=== PATIENT | female | born 1950 | race Caucasian/White ===

== ENCOUNTER 2017-08-19 08:32 | Inpatient (IN) | payer OTHER ==
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
[2017-08-19] MEDS ORDERED: NS 500 ML IV ONE ×2 (09:10→10:45)
[2017-08-19 09:18] LABS: PLATELET COUNT 378 10^3/uL (150-400)
[2017-08-19 09:24] LABS: CREATINE KINASE 365 IU/L (0-156)
[2017-08-19 09:25] LABS: INR 1.55 (0.83-1.16); PROTIME(PATIENT) 18.7 SEC (12.0-15.0)
[2017-08-19] MEDS ORDERED: INSULIN REGULAR HUMAN 100 UNIT/ML UNIT IVP ONE (10:00)
[2017-08-19] MEDS ORDERED: SODIUM POLY SULF 15 GM/60 ML BOTTLE PR ONE (10:00)
[2017-08-19] MEDS ORDERED: D50W 25 GM/50 ML SYR IVP ONE (10:00)
[2017-08-19] MEDS ORDERED: ALBUTEROL 3 ML DEYVIAL IH ONE (10:00)
[2017-08-19] MEDS ORDERED: CALCIUM GLUC 10% 1 GM/10 ML VIAL IVP ONE (10:00)
[2017-08-19] MEDS ORDERED: LORazepam 2 MG/ML INJ IVP ONE (10:08)
[2017-08-19] MEDS ORDERED: LORazepam 2 MG/ML INJ ONE (10:09)
[2017-08-19] MEDS ORDERED: SODIUM BICARBONATE 150 MEQ in D5W 1,000 ML IV ONE (10:10)
[2017-08-19] MEDS ORDERED: SODIUM BICARBONATE 50 MEQ/50 ML SYR ONE ×2 (10:14→10:26)
--- NOTE | 2017-08-19 10:32 | CPEKG ---
Heart Rate: 103 RR Interval: 583 P-R Interval: 132 QRSD Interval: 114 QT Interval: 352 QTC Interval: 461 P [place]: 72 QRS [place]: 48 T Wave [place]: 90 EKG Severity - ABNORMAL ECG - EKG Impression: SINUS TACHYCARDIA EKG Impression: DOMINGUEZ, CONSIDER BIATRIAL ABNORMALITIES EKG Impression: NONSPECIFIC INTRAVENTRICULAR CONDUCTION DELAY EKG Impression: Peaked T waves Electronically Signed By: Mara Ramsay 19-Aug-2017 15:19:11
[2017-08-19] MEDS ORDERED: ETOMIDATE 40 MG/20 ML INJ IVP ONE (10:54)
[2017-08-19] MEDS ORDERED: ROCURONIUM 100 MG/10 ML VIAL IVP ONE (10:55)
[2017-08-19] MEDS ORDERED: PROPOFOL/EMULSION 50 ML IV ONE ×2 (10:56→11:16)
[2017-08-19] MEDS ORDERED: NOREPINEPHRINE/NS 500 ML IV ONE (11:03)
[2017-08-19] MEDS ORDERED: SODIUM BICARBONATE 150 MEQ in D5W 1,000 ML IV SCH (11:15)
[2017-08-19] MEDS ORDERED: PROPOFOL 200 MG/20 ML VIAL IV ONE (11:28)
--- NOTE | 2017-08-19 12:03 | PDCONSULT ---
Cell Stripper Note: Assessment/Plan: CHUCHO on CKD 3: unclear what timeframe she has had decline in renal function, although CT scan shows bilaterally atrophied kidneys which is concerning for very advanced CKD. She may now be ESRD but that is yet to be determined. She is currently acidemic and hyperkalemic. - Will plan on HD today. - Will plan on HD vs CRRT again tomorrow depending on her condition. - Will check UA, urine lytes, urine cr, urine PCR, C3, C4. CK reviewed at 350. - Avoid hypotension and nephrotoxins. Hyperkalemia: Pt has received 2 amps bicarb, insulin/D50, albuterol, calcium in ER. Pt had peaked T waves on initial EKG. - Will plan to modulate with HD today. - Will continue to monitor and treat medically as needed until HD initiated. Acidemia: pt is acidemic with pH of 6.99, has an anion gap acidosis with insufficient respiratory compensation. - Pt being intubated and placed on vent. - Will also help modulate with HD. - Pt getting IVFs. Hyperphosphatemia: in setting of severe CHUCHO and likely advanced CKD. - Will help modulate with HD. - Will continue to monitor for now. - Will initiate phos binder if needed when pt is taking PO. - Will check PTH. Thank you for the interesting consult. Nephrology will continue to follow, please call if you have any additional questions or concerns. H & P Stated Complaint: found down at home Time Seen by Provider: 08/19/17 08:56 HPI/ROS: HPI: Ms. Parry is a 67 yo F with h/o DM and HTN and likely CKD but does not regularly see a physician. Pt unable to provide history, obtained from EMR and from son at bedside. 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 She has not been herself since Saturday, has been very tired and having falls at home, also has been breathing heavier over the weekend. He states that yesterday evening she looked tired in bed but had no significant complaints except that her abdomen was bothering her, which is a common complaint for her. He states that she had surgery a long time ago and since then it has healed poorly, she has struggled with infections and was last on an antibiotic about 2 weeks ago. This morning, he found her down after she had fallen, thinks she had been down all night. She was awake and talking on presentation to ER but became increasingly confused and somnolent, now on NRB and continues to struggle. Her son notes that she does not see a doctor regularly and is on no treatment for her DM or HTN as she has refused it. He thinks she does have kidney disease but not sure how bad it is. ROS: unable to obtain 2/2 clinical condition Source: Family Exam Limitations: Clinical condition - Personal History Current Tetanus/Diphtheria Vaccine: Unsure Current Tetanus Diphtheria and Acellular Pertussis (TDAP): Unsure - Medical/Surgical History Hx Asthma: No Hx Chronic Respiratory Disease: No Hx Diabetes: Yes Hx Cardiac Disease: No Hx Renal Disease: Yes Hx Cirrhosis: No Hx Alcoholism: No Hx HIV/AIDS: No Hx Splenectomy or Spleen Trauma: No Other PMH: DM ( noncompliant with insulin), HTN (not on medication), kidney problems, cholecystectomy, appendectomy, unknown abdominal surgery - Family History Significant Family History: Diabetes, Hypertension, Renal disease (family members have been on dialysis) - Social History Smoking Status: Never smoked - Physical Exam Exam: General: disoriented, mild distress Eyes; EOMI, PERRL OP: Clear, MMM Neck: supple, no thyromegaly CV: tachycardia, no edema Resp: CTA bilat, labored respirations on NRB Abd: Soft, distended, large area of erythema and ecchymosis concerning for underlying fluid collection Skin: C/D/I, no rash Neuro: CN II-XII Grossly intact, +asterixis Psych: confused, disoriented, somnolent, unable to answer questions Constitutional: Initial Vital Signs Heart Rate 93 08/19/17 08:32 Respiratory Rate 26 H 08/19/17 08:32 Blood Pressure 130/73 H 08/19/17 08:32 O2 Sat (%) 96 08/19/17 08:32 O2 Delivery Mode Non-Rebreather Mask O2 (L/minute) 15 Allergies/Adverse Reactions: No Known Allergies Allergy (Unverified 09/23/12 16:42) Home Medications: Medication Instructions Recorded Herbals/Supplements -Info Only 1 ea PO DAILY 08/19/17 Lab and Imaging 08/19/17 08:30 08/19/17 09:12 WBC 46.01 10^3/uL (3.80-9.50) H 08/19/17 08:30 RBC 2.63 10^6/uL (4.18-5.33) L 08/19/17 08:30 Hgb 7.5 g/dL (12.6-16.3) L 08/19/17 08:30 POC Hgb 6.5 gm/dL (12.6-16.3) L 08/19/17 10:19 Hct 23.4 % (38.0-47.0) L 08/19/17 08:30 POC Hct 19 % (38-47) L 08/19/17 10:19 MCV 89.0 fL (81.5-99.8) 08/19/17 08:30 MCH 28.5 pg (27.9-34.1) 08/19/17 08:30 MCHC 32.1 g/dL (32.4-36.7) L 08/19/17 08:30 RDW 16.5 % (11.5-15.2) H 08/19/17 08:30 Plt Count 378 10^3/uL (150-400) 08/19/17 08:30 MPV 11.1 fL (8.7-11.7) 08/19/17 08:30 Neut % (Auto) Not Reported 08/19/17 08:30 Lymph % (Auto) Not Reported 08/19/17 08:30 [place] % (Auto) Not Reported 08/19/17 08:30 Eos % (Auto) Not Reported 08/19/17 08:30 Baso % (Auto) Not Reported 08/19/17 08:30 Nucleat RBC Rel Count 0.7 % (0.0-0.2) H 08/19/17 08:30 Absolute Neuts (auto) Not Reported 08/19/17 08:30 Absolute Lymphs (auto) Not Reported 08/19/17 08:30 Absolute Monos (auto) Not Reported 08/19/17 08:30 Absolute Eos (auto) Not Reported 08/19/17 08:30 Absolute Basos (auto) Not Reported 08/19/17 08:30 Absolute Nucleated RBC 0.30 10^3/uL (0-0.01) H 08/19/17 08:30 Immature Gran % Not Reported 08/19/17 08:30 Seg Neutrophils % 86 % 08/19/17 08:30 Band Neutrophils % 14 % 08/19/17 08:30 Immature Gran # Not Reported 08/19/17 08:30 Absolute Seg Neuts 39.57 10^/uL (1.70-6.50) H 08/19/17 08:30 Absolute Band Neuts 6.44 10^3/uL (0.00-0.70) H 08/19/17 08:30 Toxic Granulation PRESENT H 08/19/17 08:30 Platelet Estimate ADEQUATE (ADEQ) 08/19/17 08:30 Echinocytes 1+ H 08/19/17 08:30 Schistocytes 1+ H 08/19/17 08:30 PT 18.7 SEC (12.0-15.0) H 08/19/17 08:30 INR 1.55 (0.83-1.16) H 08/19/17 08:30 APTT 32.6 SEC (23.0-38.0) 08/19/17 08:30 Puncture Site RIGHT RADIAL 08/19/17 11:24 Patient Temperature 37.0 DEGREES 08/19/17 11:24 pCO2 32 mmHg (34-38) L 08/19/17 11:24 pO2 182 mmHg (65-75) H 08/19/17 11:24 Total CO2 8 mEq/L (23-27) L* 08/19/17 11:24 ABG pH 6.99 (7.35-7.45) L* 08/19/17 11:24 ABG PO2/FiO2 Ratio 275 RATIO 08/19/17 11:24 ABG HCO3 7 mEq/L (22-26) L 08/19/17 11:24 ABG O2 Saturation 98 % (92-95) H 08/19/17 11:24 ABG Base Excess -22.3 mEq/L (-2.5-2.5) L 08/19/17 11:24 VBG Lactic Acid 1.3 mmol/L (0.7-2.1) 08/19/17 09:12 O2 Concentration % 60 % (0-100) 08/19/17 11:24 Set Respiration Rate 18 08/19/17 11:24 Tidal Volume 400 08/19/17 11:24 End Tidal CO2 22 08/19/17 11:24 PEEP 5 08/19/17 11:24 Pressure Support 10 08/19/17 11:24 POC Sodium 147 mEq/L (135-145) H 08/19/17 10:19 Sodium 150 mEq/L (135-145) H 08/19/17 09:12 POC Potassium 6.7 mEq/L (3.3-5.0) H* 08/19/17 10:19 Potassium 7.3 mEq/L (3.5-5.2) H* 08/19/17 09:12 POC Chloride 120 mEq/L (97-110) H 08/19/17 10:19 Chloride 117 mEq/L (97-110) H 08/19/17 09:12 Carbon Dioxide < 5 mEq/l (22-31) L* 08/19/17 09:12 Anion Gap TNP 08/19/17 09:12 POC BUN > 140 mg/dL (7-23) H* 08/19/17 10:19 BUN 190 mg/dL (7-23) H* 08/19/17 09:12 Creatinine 16.5 mg/dL (0.6-1.0) H* 08/19/17 09:12 POC Creatinine 17.4 mg/dL (0.6-1.0) H* 08/19/17 10:19 Estimated GFR 2 08/19/17 09:12 Glucose 149 mg/dL (70-100) H 08/19/17 09:12 POC Glucose 293 mg/dL (70-100) H 08/19/17 10:19 Calcium 7.5 mg/dL (8.5-10.4) L 08/19/17 09:12 Phosphorus 14.0 mg/dL (2.5-4.5) H 08/19/17 09:12 Magnesium 2.4 mg/dL (1.6-2.3) H 08/19/17 09:12 Total Bilirubin 0.6 mg/dL (0.1-1.4) 08/19/17 08:30 Creatine Kinase 365 IU/L (0-156) H 08/19/17 08:30 CK-MB (CK-2) Fraction 31.80 ng/mL (0.00-3.19) H 08/19/17 08:30 CK-MB (CK-2) % 8.7 % (0.0-4.0) H 08/19/17 08:30 Creatine Kinase Interp POSITIVE (NEGATIVE) H 08/19/17 08:30 Troponin I 0.161 ng/mL (0.000-0.034) H 08/19/17 09:24 Albumin 2.7 g/dL (3.5-5.0) L 08/19/17 09:12 EKG Interpretation: Positive for: other (peaked t waves)
[2017-08-19] MEDS ORDERED: NS 1,000 ML IV ONE ×2 (12:10→12:13)
[2017-08-19] MEDS ORDERED: PROMETHAZINE HCL 25 MG/ML INJ IVP PRN (12:21)
[2017-08-19] MEDS ORDERED: ONDANSETRON 4 MG/2 ML VIAL IVP PRN (12:21)
[2017-08-19] MEDS ORDERED: ACETAMINOPHEN 650 MG SUPP PR PRN (12:21)
[2017-08-19] MEDS ORDERED: D50W 25 GM/50 ML SYR IVP PRN (12:27)
[2017-08-19] MEDS ORDERED: HEPARIN 10,000 UNIT/10 ML MDV (1,000 UNIT/ML) ONE (12:37)
[2017-08-19] MEDS ORDERED: HEPARIN 10,000 UNIT/10 ML MDV (1,000 UNIT/ML) IVP ONE (12:40)
[2017-08-19] MEDS ORDERED: ETOMIDATE 40 MG/20 ML INJ ONE (12:50)
[2017-08-19] MEDS ORDERED: PIPERACILLIN/TAZO 3.375 GM/DEX 50 ML IV SCH (14:00)
--- NOTE | 2017-08-19 14:02 | GCON ---
[f rep st] CONSULTATION ALL ROUND [facility] CONSULTATION REASON FOR ADMISSION: Acute on chronic renal failure, severe metabolic acidosis. HISTORY OF PRESENT ILLNESS: The patient is a 67-year-old female with a past medical history, includi ng morbid obesity, chronic renal insufficiency, diabetes, hypertension, and a learning disability. S he was found down at home with altered mental status, was subsequently brought to the emergency room. She was subsequently intubated, placed on mechanical ventilation. All history is gleaned from the medical record. She apparently lives with her son, who last spoke with her on midnight the night berosa johnson. He found her on the floor at approximately 6:30 in the morning. 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 PAST SURGICAL HISTORY: Cholecystectomy. FAMILY HISTORY: Noncontributory. SOCIAL HISTORY: No history of tobacco use. No history of alcohol use. She lives in the area with h er son. There is no illicit drug use. She currently works at [employer]. REVIEW OF SYSTEMS: Attempted to obtain review of systems but was unable to secondary to sedation and mechanical ventilation. PHYSICAL EXAM: VITAL SIGNS: Blood pressure 112/63, pulse 103, respiration rate 18, temperature 34.9 , oxygen saturation 99% on mechanical ventilation. GENERAL: She is a morbidly obese 67-year-old whi te female who was obtunded and on mechanical ventilation. HEENT: Eyes are PERRL, EOMI. Throat: En dotracheal tube is in good position. NECK: Supple. No cervical adenopathy. HEART: Regular rate a nd rhythm, with a 3/6 holosystolic murmur at the left sternal border, without radiation. LUNGS: Dim inished breath sounds and a few bibasilar rhonchi, but no wheeze. ABDOMEN: Soft and nontender. [place] el sounds are present. There is a large, protuberant pannus, lower abdomen, with a midline scar. No evidence of necrosis. EXTREMITIES: 2 to 3+ lower extremity edema. LABORATORY DATA: White count is 46.01. Hemoglobin 7.5, hematocrit 23. Platelet count is 378. INR is 1.55. Sodium was 157, potassium 5.3, chloride 120. CO2 is 7. BUN 183, creatinine 16.0, glucose 186. Magnesium is 2.4. Arterial blood gas, pH is 6.99, pCO2 of 32, pO2 of 182, bicarb of 8, oxygen saturation 98%. This is on an IMV of 18, tidal volume 400, +10 of pressure support, +5 of PEEP, and 60%. Chest x-ray: Central line in good position, endotracheal tube in good position. Mild diffuse pulmonary edema. IMPRESSION: 1. Acute on chronic renal failure. 2. Hyperkalemia. 3. Severe metabolic acidosis. 4. Hyperphosphatemia. 5. Recurrent recur. 6. Infected pannus. 7. Acute respiratory failure secondary to renal failure and metabolic acidosis. RECOMMENDATIONS: 1. Will continue mechanical ventilation for now. Will increase rate to help with acidosis. 2. Agree with urgent dialysis. 3. Broad-spectrum antibiotics. 4. Surgery to see patient. 5. Aggressive blood sugar control with insulin drip. 6. Deep vein thrombosis and pulmonary embolism prophylaxis. 7. Stress ulcer prophylaxis. 8. Will assess for extubation in the morning. 9. /[id number]/MODL
--- NOTE | 2017-08-19 14:20 | PDGENHP ---
History and Physical - Chief Complaint Acute encephalopathy - History of Present Illness Primary care provider: None HPI: 67-year-old female presents with acute encephalopathy characterized as unresponsiveness common fusion, dislocation, lethargy, found down by her son on the morning of presentation. The patient's son provides the entirety of the history. He reports that for the past several months, the patient has been experiencing nausea, fatigue, diarrhea, anorexia, dysgeusia, and approximately 1 month ago the patient saw a physician who prescribed her antibiotics presumably for the skin ulcerations over her pannus. After receiving those antibiotics, the patient reported that some of her symptoms were somewhat improved, but then they relapsed after her antibiotic stopped. During the week prior to this presentation, the patient had been reporting increased abdominal discomfort and the patient was notably more fatigued past her baseline on the evening prior to the presentation when the son had spoken with her. The son went to check on her on the morning of presentation, and he found her on the floor, completely unable to provide him with any other further details. History Information - Allergies/Home Medication List Allergies/Adverse Reactions: No Known Allergies Allergy (Unverified 09/23/12 16:42) Home Medications: Herbals/Supplements -Info Only 1 ea PO DAILY 08/19/17 [Last Taken Unknown] I have personally reviewed and updated: family history, medical history, social history, surgical history - Past Medical History Additional medical history: Chronic kidney disease with last known creatinine level 1.6 in August of 2011. Chronic nonhealing abdominal wound with ventral hernia following an abdominal surgery many years ago. Developmental delay - Surgical History Additional surgical history: Cholecystectomy, open, with nonhealing wound, repeat surgeries for hernias, no recent surgical care - Family History Additional family history: Patient's mother with end-stage renal disease on hemodialysis, patient's son with chronic kidney disease and diabetes - Social History Smoking Status: Never smoked Alcohol Use: None Drug Use: None Additional social history: Patient has been working in [employer] her entire adult life, was able to work if up until 3 days prior to this presentation, resides independently in a home with her son Review of Systems Review of Systems: ROS: 10pt was reviewed & negative except for what was stated in HPI & below Constitutional: Reports: weakness Gastrointestinal: Reports: abdominal pain, abdominal distention, nausea Skin: Reports: other (Skin ulcerations) Neurological: Reports: other (Encephalopathic, unresponsive, confused) Physical Exam Physical Exam: Temp Pulse Resp BP Pulse Ox 34.8 C L 103 H 18 112/63 99 08/19/17 12:36 08/19/17 13:03 08/19/17 13:03 08/19/17 13:03 08/19/17 13:03 O2 (L/minute) 15 Constitutional: chronically ill appearing, obese, uncomfortable Eyes: PERRL, anicteric sclera, EOMI Ears, Nose, Mouth, Throat: dry mucous membranes Cardiovascular: tachycardia, No systolic murmur, No irregularly irregular, No edema (Note edema over the lower extremities, very minimal edema over the upper extremities) Respiratory: no rales or rhonchi, clear to auscultation, respiratory distress ( Visibly tachypneic), No expiratory wheeze, No inspiratory crackles, No bronchial breath sounds Gastrointestinal: other (Substantial pannus, with ventral hernia, no bowel sounds) Skin: other (Induration over the inferior aspect of the ventral hernia with ecchymotic skin lesions and then some mildly erythematous excoriations superior to that) Neurologic: other (Alert awake oriented times 0), No facial droop Psychiatric: encephalopathic, anxious, No agitated Lab Data & Imaging Review 08/19/17 08:30 08/19/17 12:52 WBC 46.01 10^3/uL (3.80-9.50) H 08/19/17 08:30 RBC 2.63 10^6/uL (4.18-5.33) L 08/19/17 08:30 Hgb 7.5 g/dL (12.6-16.3) L 08/19/17 08:30 POC Hgb 7.1 gm/dL (12.6-16.3) L 08/19/17 12:44 Hct 23.4 % (38.0-47.0) L 08/19/17 08:30 POC Hct 21 % (38-47) L 08/19/17 12:44 MCV 89.0 fL (81.5-99.8) 08/19/17 08:30 MCH 28.5 pg (27.9-34.1) 08/19/17 08:30 MCHC 32.1 g/dL (32.4-36.7) L 08/19/17 08:30 RDW 16.5 % (11.5-15.2) H 08/19/17 08:30 Plt Count 378 10^3/uL (150-400) 08/19/17 08:30 MPV 11.1 fL (8.7-11.7) 08/19/17 08:30 Neut % (Auto) Not Reported 08/19/17 08:30 Lymph % (Auto) Not Reported 08/19/17 08:30 [place] % (Auto) Not Reported 08/19/17 08:30 Eos % (Auto) Not Reported 08/19/17 08:30 Baso % (Auto) Not Reported 08/19/17 08:30 Nucleat RBC Rel Count 0.7 % (0.0-0.2) H 08/19/17 08:30 Absolute Neuts (auto) Not Reported 08/19/17 08:30 Absolute Lymphs (auto) Not Reported 08/19/17 08:30 Absolute Monos (auto) Not Reported 08/19/17 08:30 Absolute Eos (auto) Not Reported 08/19/17 08:30 Absolute Basos (auto) Not Reported 08/19/17 08:30 Absolute Nucleated RBC 0.30 10^3/uL (0-0.01) H 08/19/17 08:30 Immature Gran % Not Reported 08/19/17 08:30 Seg Neutrophils % 86 % 08/19/17 08:30 Band Neutrophils % 14 % 08/19/17 08:30 Immature Gran # Not Reported 08/19/17 08:30 Absolute Seg Neuts 39.57 10^/uL (1.70-6.50) H 08/19/17 08:30 Absolute Band Neuts 6.44 10^3/uL (0.00-0.70) H 08/19/17 08:30 Toxic Granulation PRESENT H 08/19/17 08:30 Platelet Estimate ADEQUATE (ADEQ) 08/19/17 08:30 Echinocytes 1+ H 08/19/17 08:30 Schistocytes 1+ H 08/19/17 08:30 PT 18.7 SEC (12.0-15.0) H 08/19/17 08:30 INR 1.55 (0.83-1.16) H 08/19/17 08:30 APTT 32.6 SEC (23.0-38.0) 08/19/17 08:30 Puncture Site RIGHT RADIAL 08/19/17 11:24 Patient Temperature 37.0 DEGREES 08/19/17 11:24 pCO2 32 mmHg (34-38) L 08/19/17 11:24 pO2 182 mmHg (65-75) H 08/19/17 11:24 Total CO2 8 mEq/L (23-27) L* 08/19/17 11:24 ABG pH 6.99 (7.35-7.45) L* 08/19/17 11:24 ABG PO2/FiO2 Ratio 275 RATIO 08/19/17 11:24 ABG HCO3 7 mEq/L (22-26) L 08/19/17 11:24 ABG O2 Saturation 98 % (92-95) H 08/19/17 11:24 ABG Base Excess -22.3 mEq/L (-2.5-2.5) L 08/19/17 11:24 VBG Lactic Acid 1.5 mmol/L (0.7-2.1) 08/19/17 12:52 O2 Concentration % 60 % (0-100) 08/19/17 11:24 Set Respiration Rate 18 08/19/17 11:24 Tidal Volume 400 08/19/17 11:24 End Tidal CO2 22 08/19/17 11:24 PEEP 5 08/19/17 11:24 Pressure Support 10 08/19/17 11:24 POC Sodium 150 mEq/L (135-145) H 08/19/17 12:44 Sodium 156 mEq/L (135-145) H 08/19/17 12:52 POC Potassium 5.2 mEq/L (3.3-5.0) H 08/19/17 12:44 Potassium 5.5 mEq/L (3.5-5.2) H 08/19/17 12:52 POC Chloride 101 mEq/L (97-110) 08/19/17 12:44 Chloride 119 mEq/L (97-110) H 08/19/17 12:52 Carbon Dioxide 8 mEq/l (22-31) L* 08/19/17 12:52 Anion Gap 29 mEq/L (8-16) H 08/19/17 12:52 POC BUN > 140 mg/dL (7-23) H* 08/19/17 12:44 BUN 183 mg/dL (7-23) H* 08/19/17 11:26 Creatinine 16.0 mg/dL (0.6-1.0) H* 08/19/17 11:26 POC Creatinine 17.1 mg/dL (0.6-1.0) H* 08/19/17 12:44 Estimated GFR 3 08/19/17 12:52 Glucose 162 mg/dL (70-100) H 08/19/17 12:52 POC Glucose 166 mg/dL (70-100) H 08/19/17 12:44 Calcium 7.5 mg/dL (8.5-10.4) L 08/19/17 12:52 Ionized Calcium 1.09 MMOL/L (1.12-1.30) L 08/19/17 10:00 Phosphorus 12.6 mg/dL (2.5-4.5) H 08/19/17 11:26 Magnesium 2.4 mg/dL (1.6-2.3) H 08/19/17 09:12 Total Bilirubin 0.6 mg/dL (0.1-1.4) 08/19/17 08:30 Creatine Kinase 365 IU/L (0-156) H 08/19/17 08:30 CK-MB (CK-2) Fraction 31.80 ng/mL (0.00-3.19) H 08/19/17 08:30 CK-MB (CK-2) % 8.7 % (0.0-4.0) H 08/19/17 08:30 Creatine Kinase Interp POSITIVE (NEGATIVE) H 08/19/17 08:30 Troponin I 0.161 ng/mL (0.000-0.034) H 08/19/17 09:24 Albumin 2.6 g/dL (3.5-5.0) L 08/19/17 12:52 Procalcitonin 13.90 ng/mL (0.02-0.10) H 08/19/17 12:52 Visualized and Interpreted imaging results: Yes Interpretation: CT of the abdomen demonstrating periumbilical fluid collection with ventral hernia and atrophied kidneys Visualized and Interpreted EKG results: Yes EKG Interpretation: Positive for: other (Sinus tachycardia, peaked T-waves) Assessment & Plan Assessment: 67-year-old female presenting with acute encephalopathy in the setting of acute renal failure, acute hyperkalemia, acute hypernatremia, suspected edilma umbilical abscess, anemia of end-stage renal disease Plan: 1. Acute encephalopathy. Evidenced by global brain dysfunction characterized as confusion, disorientation, unresponsiveness, all of which are acute, and secondary to the toxic effects of infection, the metabolic effects of uremia and acidosis -correct acidosis, uremia with hemodialysis -treat infection 2. Acute renal failure. Discussed with Dr. Gomes, she and I both suspect the patient has been progressing from chronic kidney disease to end-stage renal disease over the past several months, hence the development of her uremic symptoms. That being said, we suspect that the patient did acutely worsen probably secondary to infection, which ultimately elicited this presentation next-the patient has numerous indications for hemodialysis including acidosis, hyperkalemia with peaked T-waves, encephalopathy -dialysis catheter per Dr. Wallace, hemodialysis thereafter -monitoring renal labs under the direction Dr. Gomes -carefully balance IV fluids, avoid volume overload -Kirkpatrick catheter monitor I&Os, daily weights 3. Acute hyperkalemia. Secondary to acute renal failure, peaked T-waves on EKG , high risk for cardiac arrhythmia -continue monitor on telemetry -discussed with Dr. Mara Ramsay in the emergency department, she reports the patient has received calcium, sodium bicarbonate, dextrose with insulin, albuterol -hemodialysis now 4. Acute hypernatremia. Most likely secondary to poor free water intake, continue to monitor with labs above 5. Acute metabolic acidosis. PH of 6.99, most likely secondary to renal failure with an undetectable bicarbonate level on presentation sign- hemodialysis now, continue monitor -intubated for airway protection, checking CXR 6. Hyperglycemia. Unclear whether patient has underlying diabetes, get hemoglobin A1c -placed on insulin sliding scale 7. Anemia of end-stage renal disease. Hemoglobin level declining status post IV fluids -transfuse 1-2 units packed red blood cells in AM prior to HD 8. Suspected periumbilical abscess. Significant leukocytosis, induration around the affected area, radiographic evidence of likely abscess -discussed with Dr. Holliday, he and I both agree no evidence of septic shock, rechecking lactic acid level now -will order [employer] records to see what Abx she recently received -give vancomycin and Zosyn renally dosed empirically -get culture with surgery tomorrow -depending on culture results and clinical course, may consult with Infectious Disease -Dr. Wallace will perform pannicular excision tomorrow s/p blood/HD 9. Hypotension. Acute, most likely secondary to med effect and positive pressure from intubation -s/p IVF in ED, pressors not required -recheck lactic acid Diet. NPO PPx. High risk, SCDs, hold hep given OR Code. Full, confirmed w/ son who is MDPOA Dispo. ADD uncertain, anticipated LOS > 48hrs for reasonable medical necessity including ARF requiring HD, acidosis requiring intubation. 70 minutes of critical care time spent addressing all of the above ( particularly the infected pannus), coordinating with the above providers, goals of care convo with son, patient remains critically ill w/ high risk of mortality.
[2017-08-19] MEDS ORDERED: VANCOMYCIN PHARMACY TO DOSE MISC SCH (15:45)
[2017-08-19 16:35] VITALS: O2SAT 100
--- NOTE | 2017-08-19 16:40 | PDMN ---
Medical Necessity Medical necessity: Pt meets INPT criteria per and [facility] M-326 Renal Failure, Acute (creatinine 16.0 with previous creatinine 1.6, requiring hemodialysis, acute hyperkalemia, hypernatremia, hyperglycemia, anemia, hypotension, leukocytosis, suspected periumbilical abscess, acute encephalopathy).
[2017-08-19] MEDS: INSULIN REGULAR HUMAN 100 UNIT/ML UNIT SC SCH (16:47)
[2017-08-19] MEDS: PIPERACILLIN/TAZO 2.25 GM/DEX 50 ML IV SCH (16:48)
[2017-08-19] MEDS ORDERED: VANCOMYCIN 1 GM in NS 250 ML IV ONE (17:00)
[2017-08-19] MEDS ORDERED: HEPARIN 50,000 UNIT/10 ML VIAL ONE (17:00)
[2017-08-19] MEDS ORDERED: ALTEPLASE 2 MG VIAL IVP PRN (17:48)
[2017-08-19] MEDS ORDERED: VANCOMYCIN HCL/NORMAL SALINE 250 ML IV ONE (18:00)
[2017-08-19] MEDS ORDERED: NOREPINEPHRINE/NS 500 ML IV SCH (18:00)
[2017-08-19 19:31] LABS: HEPATITIS B SURFACE ANTIGEN NEGATIVE (NEGATIVE)
[2017-08-19 19:37] LABS: HEPATITIS A ANTIBODY IGM (BCH) NEGATIVE (NEGATIVE); HEPATITIS B CORE AB IGM NEGATIVE (NEGATIVE)
[2017-08-19 19:49] LABS: HEPATITIS C ANTIBODY TOTAL NEGATIVE (NEGATIVE)
--- NOTE | 2017-08-19 20:12 | SOAPPROG ---
SOAP Progress Note Assessment/Plan: Assessment: 67-year-old very ill female seen earlier today in the ER/patient intubated and sedated at the time of my consultation Patient is in severe renal failure with creatinine of 16 and hematocrit of 21 Risks and options for dialysis catheter placement discussed with her family who wish to proceed HEENT without signs of icterus or adenopathy or oral lesions Chest clear and symmetric Cor regular rhythm some hypertension Abdomen reversible upper abdominal midline hernia/giant panniculus with skin necrosis induration and probable infection Neuro exam on obtainable as the patient is sedated Plan: IJ dialysis catheter placement and wound stable I and D of her panniculus abscess/this will probably require extensive excision and wound VAC placement 08/19/17 20:10 Objective: Vital Signs Temp Pulse Resp BP Pulse Ox 36.1 C 102 H 20 135/62 H 100 08/19/17 19:57 08/19/17 19:57 08/19/17 19:57 08/19/17 19:57 08/19/17 19:57 Laboratory Results 08/19/17 18:35 08/18/17 08/19/17 08/20/17 05:59 05:59 05:59 Intake Total 744 Output Total 350 Balance 394 PT 18.7 SEC (12.0-15.0) H 08/19/17 08:30 INR 1.55 (0.83-1.16) H 08/19/17 08:30 ICD10 Worksheet Patient Problems: Problems Problem Status Onset Altered mental status Acute Diabetes Acute Hyperkalemia Acute Renal failure Acute
[2017-08-19] MEDS ORDERED: CHLORHEXIDINE GLUC HIBICLENS 118 ML BTL TP ONE (21:05)
--- NOTE | 2017-08-19 21:22 | POSTOPPROG ---
Post Op Note Date of Operation: 08/19/17 Surgeon: Clay Wallace Anesthesia: IV Sedation Pre-op Diagnosis: Acute renal failure Post-op Diagnosis: Same Indication: Need for dialysis Procedure: Right IJV temporary dialysis catheter placement with ultrasound guidance Findings: Good position and flow Inf/Abcess present in the surg proc area at time of surgery?: No Depth: Deep Incisional (Fascial) EBL: Minimal Complications: None
[2017-08-20] MEDS: INSULIN REGULAR HUMAN 100 UNIT/ML UNIT SC SCH ×3 (00:28→11:26)
[2017-08-20] MEDS ORDERED: PROPOFOL/EMULSION 100 ML IV SCH (04:50)
[2017-08-20] MEDS ORDERED: fentaNYL/NACL 100 ML IV SCH (04:51)
[2017-08-20] MEDS: PIPERACILLIN/TAZO 2.25 GM/DEX 50 ML IV SCH (05:04)
[2017-08-20 06:27] LABS: PLATELET COUNT 175 10^3/uL (150-400)
[2017-08-20 06:41] LABS: INR 1.41 (0.83-1.16); PROTIME(PATIENT) 17.4 SEC (12.0-15.0)
--- NOTE | 2017-08-20 08:34 | PDINTPN ---
Emergency Response Technician Progress Note Assessment/Plan: Assessment/Plan: * Acute on chronic renal failure-currently on dialysis * Severe metabolic acidosis- -arterial blood gas pending * Acute respiratory failure secondary to renal failure and fluid overload -stable on mechanical ventilation. -await chest x-ray and arterial blood gas * Shock-currently on Levophed -wean as tolerated * Diabetes-blood sugar well controlled * Anemia-transfusion in progress * Hypertension-controlled * Panniculus abscess -to OR today for likely debridement and I&D * Bacteremia-Staph aureus. Current antibiotic coverage adequate * VT prophylaxis * Stress ulcer prophylaxis * Sedation-adequate * Pain control-adequate Subjective: Sedated on mechanical ventilation Objective: Vital Signs Temp Pulse Resp BP Pulse Ox 36.8 C 100 20 97/50 L 100 08/20/17 08:00 08/20/17 08:00 08/20/17 08:00 08/20/17 08:00 08/20/17 08:00 Laboratory Results 08/20/17 05:40 08/20/17 05:40 08/19/17 08/20/17 08/21/17 05:59 05:59 05:59 Intake Total 2063 Output Total 700 Balance 1363 PT 17.4 SEC (12.0-15.0) H 08/20/17 05:40 INR 1.41 (0.83-1.16) H 08/20/17 05:40 - Time Spent With Patient Time Spent With Patient: 45 min of critical care time spent with patient. Case discussed with respiratory therapy and nursing. Physical Exam - Physical Exam General Appearance: No alert (Sedated) EENT: PERRL/EOMI, ET tube Neck: non-tender Respiratory: crackles (Few), No lungs clear, No respiratory distress, No accessory muscle use Cardiac/Chest: normal peripheral pulses, regular rate, rhythm, systolic murmur Abdomen: soft, No non-tender Pelvic Exam: deferred Rectal: deferred Skin: normal color, warm/dry Lymphatic: no adenopathy Extremities: normal range of motion, non-tender, normal inspection, normal capillary refill Neuro/Psych: other (Sedated) ICD10 Worksheet Patient Problems: Problems Problem Status Onset Altered mental status Acute Diabetes Acute Hyperkalemia Acute Renal failure Acute
--- NOTE | 2017-08-20 09:29 | SOAPPROG ---
SOORALIA Progress Note Assessment/Plan: Assessment/Plan: CHUCHO on CKD 3: likely is ESRD, has bilaterally atrophied kidneys on CT concerning for very advanced renal disease, markedly elevated PTH. - HD being done today. - Will plan on HD again tomorrow. - Avoid hypotension and nephrotoxins. Hyperkalemia: improved with HD as well as bicarb ggt. - Will stop bicarb. - Will continue to modulate with HD. Acidemia: improved with HD and bicarb ggt, pH now 7.46. - Will stop bicarb ggt. - Pt also intubated and on vent. - Will continue HD as above. - Will continue to monitor. Hyperphosphatemia: in setting of kidney disease as above, phos down to 6.9 with HD, PTH > 1000. - Will continue to modulate with HD. - Will continue to monitor. Shock: pt on Levophed. Anemia: pt being transfused 2 units PRBCs this am, will continue to monitor. Subjective: Pt had HD yesterday with no issues, on HD again today. She has received 1 unit PRBCs and will have the other started shortly. Planning to go to OR after HD. She remains intubated. Objective: Vital Signs Temp Pulse Resp BP Pulse Ox 36.8 C 80 18 105/54 L 100 08/20/17 08:00 08/20/17 09:00 08/20/17 09:00 08/20/17 09:00 08/20/17 09:00 Laboratory Results 08/20/17 05:40 08/20/17 05:40 08/19/17 08/20/17 08/21/17 05:59 05:59 05:59 Intake Total 2063 263 Output Total 700 Balance 1363 263 PT 17.4 SEC (12.0-15.0) H 08/20/17 05:40 INR 1.41 (0.83-1.16) H 08/20/17 05:40 General: sedated, no acute distress Eyes: PERRL OP: intubated CV: RRR, +systolic murmur Resp: intubated and on vent Abd: Soft, distended, large area of erythema and ecchymosis Ext: no edema Neuro: sedated Access: RIJ temp cath ICD10 Worksheet Patient Problems: Problems Problem Status Onset Altered mental status Acute Diabetes Acute Hyperkalemia Acute Renal failure Acute
[2017-08-20] MEDS ORDERED: FAMOTIDINE 20 MG/NACL 50 ML IV SCH (10:30)
[2017-08-20] MEDS ORDERED: HEPARIN 50,000 UNIT/10 ML VIAL IV ONE (10:39)
--- NOTE | 2017-08-20 12:16 | SOAPPROG ---
SOAP Progress Note Assessment/Plan: Assessment: 67 Y ill female in renal failure now s/p temp HD catheter and getting HD. Abdominal wall/panniculus abscess vs fat necrosis with skin necrosis. Sepsis, ARF on vent. Has been on pressors, now just low dose levophed during HD. Seen with Dr. Wallace and d/w renal, medicine, and pt's family. Plan for OR later today for tunneled palindrome neck catheter for HD and I&D, possible panniculectomy. Risks and options discussed with family. Consent in chart. On scheduled abx. Sedated on vent lower abd/panniculus is indurated, erythematous, with areas of seropurulent weeping and skin necrosis 08/20/17 12:11 Objective: Vital Signs Temp Pulse Resp BP Pulse Ox 36.7 C 98 14 97/47 L 100 08/20/17 11:57 08/20/17 11:57 08/20/17 11:57 08/20/17 11:00 08/20/17 11:57 Laboratory Results 08/20/17 11:10 08/20/17 10:15 08/19/17 08/20/17 08/21/17 05:59 05:59 05:59 Intake Total 2063 263 Output Total 700 Balance 1363 263 PT 17.4 SEC (12.0-15.0) H 08/20/17 05:40 INR 1.41 (0.83-1.16) H 08/20/17 05:40 ICD10 Worksheet Patient Problems: Problems Problem Status Onset Altered mental status Acute Diabetes Acute Hyperkalemia Acute Renal failure Acute
[2017-08-20] MEDS ORDERED: BUPIVACAINE 0.5% 30 ML SDV ONE ×2 (13:08→13:45)
[2017-08-20] MEDS ORDERED: BACITRACIN ZINC 14.2 GM OINTTUBE TP ONE (13:44)
[2017-08-20] MEDS ORDERED: HEPARIN 5,000 UNIT/0.5 ML SYR ONE ×2 (13:45→16:55)
[2017-08-20] MEDS ORDERED: LIDOCAINE 1% 300 MG/30 ML SDV ONE (13:45)
[2017-08-20 14:31] VITALS: TEMP 100.2
[2017-08-20 15:24] VITALS: BP 144/52
[2017-08-20 15:56] VITALS: PULSE 119; RESP 20
--- NOTE | 2017-08-20 16:03 | ECHO ---
[email or web address] [address] [address] Main: [phone] Fax: Transthoracic Echocardiogram Name: NELY MONCADA MR#: [id number] Study Date: 08/20/2017 Study Time: 01:35 PM Date of : 1950 Age: 67 year(s) Height: 149.9 cm (59 in.) Weight: 88.45 kg (195 lb.) BSA: 1.82 m2 Gender: Female Examination: Echo Indication: mssa bacteremia/sepsis; murmur Image Quality: Technically Difficult Contrast: Requested by: Lauro Freire BP: 146 mmHg/67 mmHg Heart Rate: Rhythm: Indication: mssa bacteremia/sepsis; murmur Procedure Staff Glassware Selector: Sonja Carballo Reading Physician: Anthony Dill Requesting Provider: Conclusions: Moderate concentric LV hypertrophy. The ejection fraction is estimated to be 70-75 %. There is mild thickening of the mitral valve leaflets. Moderate aortic cusp calcification is present. Mild calcific aortic valve stenosis. Possible mobile echo density noted on the aorta side of the non-coronary leaflet; Lamble versus vegetation.. Trivial to mild tricuspid valve regurgitation. Measurements: Chambers Valvular Assessment AV/MV Valvular Assessment TV/PV Normal Normal Normal Name Value Range Name Value Range Name Value Range Ao Karmen (MM): 2.9 cm (2.2 cm-3.7 AV Vmax: 2.78 m/s (1 m/s-1.7 TR Vmax: 3.08 mm/s ( - ) cm) m/s) TR PGmax: 38 mmHg ( - ) IVSd (2D): 1.4 cm (0.6 cm-1.1 AV maxP mmHg ( - ) syst. PAP: 43 mmHg ( - ) cm) AV meanP mmHg ( - ) PV Vmax: 1.49 m/s (0.6 m/s-0.9 LVDd (2D): 3.4 cm (3.9 cm-5.3 LVOT Vmax: 2.44 m/s (0.7 m/s-1.1 m/s) cm) m/s) PV PGmax: 9 mmHg ( - ) LVDs (2D): 1.6 cm (2.1 cm-4 SPENCER (Vmax): 2.5 cm2 ( - ) cm) SPENCER (VTI): 2.1 cm ( - ) LVPWd (2D): 1.3 cm ( - ) MV E Vmax: 0.99 m/s ( - ) LVOTd 1.9 cm 1.9 cm mm MV A Vmax: 1.53 m/s ( - ) LVEF (2D): 84 (>=54 %) MV E/A: 0.65 ( - ) EF Range: 70-75 % RVDd(2D): 2.8 cm (1.9 cm-3.8 cmmm) Continued Measurements: Chambers Valvular Assessment AV/MV Valvular Assessment TV/PV Patient: NELY MONCADA Study Date: 08/20/2017 Page 1 of 2 01:35 PM Name Value Name Value Name Value LADs Lon.0 cm MV DecTime: 100 m/s CVP (est.): 5 mmHg LA Area: 13.4 cm2 MV E/E' Septal: 19.90 LA Volume: 38 ml MV E/E' Lateral: 21.60 LA Volume Index: 20.9 ml/m2 RA Area: 11.0 cm2 Additional Vessels Name Value Ao Ascendin.7 cm Findings: Left Ventricle: Normal size left ventricle. Moderate concentric LV hypertrophy. Global hypercontractility of the left ventricle. The ejection fraction is estimated to be 70-75 %. No regional wall motion abnormality. Grade 1 diastolic dysfunction (abnormal relaxation). Mildly increased gradient though the LV/LVOT of 50mmHg at rest. No valsalva due to patient being on a ventilator and sedated.. Right Ventricle: Normal size right ventricle. Normal RV function. Left Atrium: The left atrium is normal in size. Right Atrium: The right atrium is normal in size. Mitral Valve: There is mild thickening of the mitral valve leaflets. There is no significant mitral valve regurgitation. No mitral stenosis is present. No obvious vegetation but due to suboptimal window it is difficult to rule out.. Aortic Valve: The aortic valve is tri-leaflet. Moderate aortic cusp calcification is present. There is no significant aortic valve regurgitation. Mean aortic valve gradient 19. Mild calcific aortic valve stenosis. Possible mobile echo density noted on the aorta side of the non-coronary leaflet; Lamble versus vegetation.. Tricuspid Valve: The tricuspid valve appears normal. Trivial to mild tricuspid valve regurgitation. Right ventricular systolic pressure measures 43mmHg. The pulmonary artery pressure is mild to moderately increased. No obvious vegetation but due to suboptimal window it is difficult to rule out. PIC line noted in RA. Prominent Eustachian valve noted.. Pulmonic Valve: Pulmonary valve not well visualized. Aorta: Normal size aortic root measuring 2.9 cm. Normal size ascending aorta measuring 2.7 cm. Pericardium: No pericardial effusion. (No Signature Object) Patient: NELY MONCADA Study Date: 08/20/2017 Page 2 of 2 01:35 PM [id number]
[2017-08-20] MEDS ORDERED: fentaNYL 100 MCG/2 ML INJ ONE ×2 (16:04)
--- NOTE | 2017-08-20 16:04 | ASMTCMCOM ---
CM Note CM Note Notes: 67 year old female admitted for Yanna umbilical abscess, acute encephalopathy, Abdominal pain. She was found down by her son, whom she lives with. Patient has a hx of CKD, DD, Non healing wound. To go to OR today, on a vent and dialysis. CM to follow for discharge needs. Date Signed: 08/20/2017 04:04 PM Electronically Signed By:Aline Handley LCSW
[2017-08-20] MEDS ORDERED: PHENYLEPHRINE HCL 50 MG in D5W 250 ML IV SCH (16:30)
--- NOTE | 2017-08-20 16:51 | PDANEPAE ---
ANE History of Present Illness necrosis of panus ANE Past Medical History - Pulmonary History Hx Oxygen in Use at Home: No Hx Sleep Apnea: No Sleep Apnea Screening Result - Last Documented: Positive - Endocrine History Hx Diabetes: Yes Obesity: severe - Renal History Hx Renal Disorders: Yes ANE Review of Systems Review of Systems: - Exercise capacity Exercise capacity: unable to assess ANE Patient History - Allergies Allergies/Adverse Reactions: No Known Allergies Allergy (Unverified 09/23/12 16:42) - Home Medications Home Medications: RX: Herbals/Supplements -Info Only 1 ea PO DAILY 08/19/17 [Last Taken Unknown] - NPO status NPO Since - Liquids (Date): 08/19/17 NPO Since - Liquids (Time): 11:00 NPO Since - Solids (Date): 08/19/17 NPO Since - Solids (Time): 11:00 - Smoking Hx Smoking Status: Never smoked - Alcohol Use Alcohol Use: None ANE Labs/Vital Signs - Labs Result Diagrams: 08/20/17 11:10 08/20/17 10:15 - Vital Signs Blood Pressure: 144/52 Heart Rate: 119 Respiratory Rate: 20 O2 Sat (%): 100 Height: 149.86 cm Weight: 88.7 kg ANE Physical Exam - Airway Neck exam: short neck Mallampati Score: Unable to assesss Mouth exam: ETT in situ - Pulmonary Pulmonary: no respiratory distress - Cardiovascular Cardiovascular: regular rate and rhythym - ASA Status ASA Status: IV, E (sepsis, renal failure) ANE Anesthesia Plan Anesthesia Plan: general endotracheal anesthesia Urgent/Emergent Case: Kassandra archuleta completed preop but documented later for safe timely pt care
[2017-08-20] MEDS ORDERED: HEPARIN 50,000 UNIT/10 ML VIAL ONE (16:59)
[2017-08-20] MEDS ORDERED: NEOSPORIN OPHT OINT 3.5GM ONE (16:59)
[2017-08-20] MEDS ORDERED: NEOMY SULF/BACITRAC ZN/POLY 30 GM OINTTUBE TP ONE (17:01)
[2017-08-20] MEDS ORDERED: THROMBIN (BOVINE) 20,000 UNIT SPRAY TP ONE (17:24)
[2017-08-20] MEDS ORDERED: ALBUMIN 5% 250 ML BOTTLE IV ONE (17:43)
--- NOTE | 2017-08-20 17:44 | HOSPPROG ---
Hospitalist Progress Note Assessment/Plan: Assessment: 67-year-old female presenting with acute encephalopathy in the setting of acute renal failure, acute hyperkalemia, acute hypernatremia, suspected edilma- umbilical abscess, MSSA bacteremia, anemia of end-stage renal disease, possible septic shock Plan: # Acute encephalopathy. Evidenced by global brain dysfunction characterized as confusion, disorientation, unresponsiveness, all of which are acute, and secondary to the toxic effects of infection, the metabolic effects of uremia and acidosis - currently sedated on vent # Acute renal failure on ESRD. Currently anuric, short in, s/p 2 sessions of HD - will cont to require HD - appreciate ongoing renal consult # Possible septic shock. POA, developed hypotension requiring pressors s/p intubation in setting of MSSA bacteremia, given specific volume (blood, NS in ED , bicarb) and intentionally not placed on septic shock protocol for patient's own safety, development of dCHF, and the original opinion was unclear as to whether her hypotension was driven by positive pressure from vent and sedation vs. infxn, but, on retrospective review, it appears that the shock was likely driven by infxn and required longer course of pressors than would have been anticipated from vent/sedation alone - wean from levo, holding additional IVF - cont Abx # MSSA bacteremia. POA, likely 2/2 skin source, d/w Dr. Freire, consultation appreciated - narrow Abx, dose w/ HD - Echo w/ possible aortic vegetation, d/w Dr. Freire, anticipate that bacteremia may have delayed response and further ERLINDA may be required, would rec avoiding placement of permanent HD tunnel cath if possible - contacted Dr. Wallace, discussed edilma-operatively # Suspected periumbilical abscess. POA, significant leukocytosis, induration around the affected area, radiographic evidence of likely abscess - examined w/ Dr. Freire, several areas of fluctuance - OR w/ Dr. Wallace today - fully discussed potential of large open abd wound and complex, prolonged healing w/ family, they believe that her personal goals of care would include surgery # Acute diastolic CHF exacerbation. Echo w/ concentric LVH, dd, preserved EF, CXR w/ interstitial infiltrates and patient is anuric, so all volume will have to be dialyzed off - cont to monitor weight - cont vent # Acute hyperkalemia. Resolved # Acute hypernatremia. Resolved # Acute metabolic acidosis. Resolved s/p HD # Hyperglycemia. 2/2 stress response, pre-DM on A1c 6.4% # Anemia of end-stage renal disease. Hemoglobin level declining status post IV fluids, likely dilutional and demonstrating the chronicity, no initial e/o blood loss -transfused 2 units packed red blood cells in AM prior to HD # Morbid obesity w/ BMI 39.5. Impaired ability to heal from abd surgery Diet. NPO PPx. High risk, SCDs, hold hep given OR Code. Full, confirmed w/ son who is MDPOA Dispo. ADD uncertain, critically ill 60 minutes of critical care time spent (specifically addressing the bacteremia, goals of care, need for surgery w/ family) w/ patient and family, remains high risk of mortality. Subjective: intubated, sedated Objective: Vital Signs Temp Pulse Resp BP Pulse Ox 37.9 C 119 H 20 144/52 H 100 08/20/17 14:06 08/20/17 16:51 08/20/17 16:51 08/20/17 16:51 08/20/17 16:51 Laboratory Results 08/20/17 11:10 08/20/17 10:15 08/19/17 08/20/17 08/21/17 05:59 05:59 05:59 Intake Total 2063 669 Output Total 700 200 Balance 1363 469 PT 17.4 SEC (12.0-15.0) H 08/20/17 05:40 INR 1.41 (0.83-1.16) H 08/20/17 05:40 - Physical Exam Constitutional: chronically ill appearing, obese Cardiovascular: tachycardia, No systolic murmur, No irregularly irregular (a), No edema Respiratory: inspiratory crackles, No expiratory wheeze, No bronchial breath sounds Gastrointestinal: other (large panus) Skin: other (fluctuance along panus w/ induration, blanchable, necrotic umbiliucus, several areas of open sores w/ less erythema than day prior) Psychiatric: other (sedated) ICD10 Worksheet Patient Problems: Problems Problem Status Onset Renal failure Acute Hyperkalemia Acute Altered mental status Acute Diabetes Acute
--- NOTE | 2017-08-20 17:54 | POSTOPPROG ---
Post Op Note Date of Operation: 08/20/17 Surgeon: Clay Wallace Manager Compliance: Margartia Pastrana Anesthesiologist: Arsenio Antoine Anesthesia: GET(General Endotracheal) Pre-op Diagnosis: renal failure Post-op Diagnosis: same Indication: 67 Y F admitted in renal failure now with temp cath. Procedure: tunneled palindrome neck catheter with flouro guidance Findings: good position and flow Inf/Abcess present in the surg proc area at time of surgery?: No EBL: 50-100 Complications: none
--- NOTE | 2017-08-20 17:57 | POSTOPPROG ---
Post Op Note Date of Operation: 08/20/17 Surgeon: Clay Wallace Regional Climate Change Analyst: Margarita Pastrana Anesthesiologist: Arsenio Antoine Anesthesia: GET(General Endotracheal) Pre-op Diagnosis: necrotic indurated pannus c abscess Post-op Diagnosis: same, large and severe Procedure: I&D of abdominal wall abscess with panniculectomy Findings: huge amount of gross purulence and fat necrosis (about qt to 1/2 gallon) Inf/Abcess present in the surg proc area at time of surgery?: Yes Depth: Deep Incisional (Fascial) EBL: 300cc Complications: none Drains: Wound Vac Specimen(s): pannus to path, also, cultures sent
--- NOTE | 2017-08-20 18:11 | POSTANESTH ---
Post Anesthetic Evaluation Cardiovascular Status: Similar to Pre-Op Cond Respiratory Status: Similar to Pre-op Cond. Level of Consciousness/Mental Status: Unconscious Pain Control: Adequate, Prn Tx Ordered Nausea/Vomiting Control: Adequate, Prn Tx Ordered Complications Possibly Related to Anesthesia: None Noted
[2017-08-20] MEDS ORDERED: VASOPRESSIN/DEXTROSE 250 ML IV SCH ×2 (18:28→19:00)
[2017-08-20] MEDS ORDERED: NS 1,000 ML IV ONE (18:31)
[2017-08-20] MEDS ORDERED: DOPamine 400 MG in D5W 250 ML IV SCH (19:00)
[2017-08-20] MEDS ORDERED: DOBUTamine 500 MG in D5W 250 ML IV SCH (19:00)
[2017-08-20] MEDS ORDERED: DOBUTamine/DEXTROSE 250 ML IV SCH (19:00)
[2017-08-20] MEDS ORDERED: ALBUMIN 5% 500 ML BOTTLE IV ONE (19:44)
--- NOTE | 2017-08-20 21:48 | GCON ---
[f rep st] CONSULTATION INFECTIOUS DISEASE CONSULTATION DATE OF CONSULTATION: 08/20/2017 REFERRING PHYSICIAN: Jaden Haines MD REASON FOR CONSULTATION: MSSA bacteremia, sepsis and panniculitis with abscess. CHIEF COMPLAINT: Confusion, found down, bacteremia. HISTORY OF PRESENT ILLNESS: This is a 67-year-old female with a past medical history significant for chronic kidney disease, ventral hernia with previous abdominal surgeries, who was admitted yesterday after being found down by her son. Apparently she was recently having nausea, fatigue and diarrhea, and saw a primary care doctor about a month ago and was put on some antibiotics. Her family members are in the room but they did not know what antibiotic she was put on. She apparently did improve wi th her symptoms, but once antibiotics completed her symptoms returned. It is not clear who her prima care doctor was or whom she was seeing. The last reported blood work again in [facility] was 2011, with a creatinine of 1.6. She had blood cultures in 2 sets drawn and both sets are growing out gram- positive cocci in clusters with the preliminary ID as MSSA. She had an abdominal pelvic CT done ic h showed a large subcutaneous collection measuring 29.2 x 8.5 x 10 cm that could be a hematoma, serom a or abscess. She also had a large ventral abdominal hernia. Chest x-ray showed mild pulmonary shahida a. She came in with acute renal failure with a creatinine of 16. She had a temporary dialysis robin ter placed and has been started on dialysis. She was given a dose of vancomycin yesterday, and start ed on Zosyn 2.25 g q.12. the patient is intubated and sedated in the intensive care unit and cannot provide any additional history. History is obtained purely from the medical records that were provid ed to patient and family at the bedside. Infectious Disease is now consulted for further evaluation and opinion. REVIEW OF SYSTEMS: Cannot be obtained as patient is intubated and sedated in the intensive care unit . PAST MEDICAL HISTORY: Significant for chronic kidney disease, ventral hernia, chronic nonhealing abd ominal wound, developmental delay. PAST SURGICAL HISTORY: Significant for open cholecystectomy, multiple surgeries for hernias, nonheal ing wound. ALLERGIES: No known drug allergies. SOCIAL HISTORY: She is a nonsmoker and nondrinker. 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 Lives independently at home with her son. FAMILY HISTORY: Significant for end-stage renal disease with her mother who was on dialysis. MEDICATIONS: As per MAR. PHYSICAL EXAMINATION: VITAL SIGNS: Temperature current is 36.7, pulse is 98, blood pressure 117/59, saturations are 100% on 40% FiO2 with a respiratory rate of 14. GENERAL: The patient is in the int ensive care unit intubated and sedated. HEENT: Head is normocephalic, atraumatic. Pupils are pin p oint. There is no conjunctival injection or petechiae noted. Oropharynx she has H2O in place. Orop harynx not well visualized. CARDIOVASCULAR: S1, S2. Regular rate and rhythm. She has a 4/6 systol ic murmur appreciated. RESPIRATORY: Mild coarse breath sounds anteriorly. ABDOMEN: Obese. She low s multiple superficial wounds on the abdomen in the lower part of the abdomen and quite indurated all across with some skin necrosis noted. She also has some softening or fluctuant areas in a couple of areas especially in the lower abdomen. She has a Kirkpatrick catheter in place. EXTREMITIES: No clear l ower extremity edema. LABS: White blood cell count is 19.3. She came in with a white blood cell count of 46,000, improved to 14,000 yesterday. Hemoglobin is 5.0 yesterday, it is improved to 8.7 today. Platelets are 175. Sodium 144, potassium 3.7, chloride 101, bicarb is 24, BUN is 95, creatinine is 8.0, glucose is 315. Hemoglobin A1c was 6.4. No LFTs checked. Hepatitis A IgM, hepatitis B surface antigen, hepatitis B core IgM, hepatitis C antibodies are negative. Blood cultures x2 sets with gram-positive cocci in clusters in both sets. The preliminary ID is MSSA. IMAGING: Results have all been reviewed by me and are stated above. ASSESSMENT: 1. Methicillin-sensitive Staphylococcus aureus bacteremia and sepsis. 2. Abdominal wall panniculus with abscess and evidence of skin necrosis. PLAN: At this point in time, the patient is on Zosyn with change to Ancef as likely this is all meth icillin-sensitive Staphylococcus aureus driven. We need to renally dose Ancef. We will repeat blood cultures x2 sets. Would recommend TTE to evaluate heart murmur given the presence of methicillin-se nsitive Staphylococcus aureus bacteremia and sepsis. I agree with the patient plans to go to the ope rating room for I and D of this subcutaneous collection. Please send for cultures. Care coordinated with the RN and hospitalist team. Care coordinated with the pharmacist as well. Records in cardio are also reviewed and there is no other blood work seen in between 2011 and 2018. Plan of care was r mattwed with the patient. Thank you very much for the opportunity to care for your patient in consultation. /[id number]/MODL
--- NOTE | 2017-08-20 23:46 | PDCODEBLUE ---
Code Blue Note Responded to nena christy at ~17:20. When I arrived, CPR was in progress. Ms. Parry is a 67 yo female who was admitted with acute encephalopathy, acute renal failure, severe hyperkalemia and pannus abscess. She went to OR today where >1 gal of pus was drained, wound vac was placed. Upon return to the ICU, she was hypotensive to the 70's, requiring 3 pressors, and lactate had risen to 5.6 consistent with septic shock. She was on broad spectrum antibiotics and blood transfusion was underway. Initial rhythm was PEA. She received a total of 4 mg of Epinephrine with high quality CPR. Rhythm converted to V fib and she received a 200 J shock. Return of PEA. She had a brief return of spontaneous circulation with sinus tachycardia. Aggressive volume resuscitation was continued with prbc's on the rapid infuser, along with NS and rapid infusion of Albumin. However, she became pulseless again within 20 seconds and rhythm returned to PEA. She received recurrent epinephrine doses, 2 amps of sodium bicarb as well as calcium gluconate due to concern for hyperkalemia with presenting K of 7.4. After 25 minutes of CPR, I discussed with the family our efforts and they wished for us to stop. She did have a brief return of pulse after we ceased our efforts, but her children did not want any further CPR or trauma to their mother and wished for her to be DNR at that point, which was honored. She again became pulseless and time of was 17:56. Total critical care time at bedside was 40 minutes.
[2017-08-21] MEDS ORDERED: SODIUM BICARBONATE 50 MEQ/50 ML SYR ONE (03:05)
[2017-08-21] MEDS ORDERED: EPINEPHrine 1 MG/10 ML SYR IVP ONE (03:05)
[2017-08-21] MEDS ORDERED: CALCIUM CHLORIDE 1 GM/10 ML INJ ONE (03:05)
[2017-08-21] MEDS ORDERED: NALOXONE HCL 2 MG/2 ML SYR IVP ONE (03:05)
[2017-08-21] MEDS ORDERED: NS 1,000 ML IV SCH (08:00)
--- NOTE | 2017-08-21 11:42 | ASDISCHSUM ---
Discharge Information Plan Status:Home with No Needs Medically Cleared to Leave: Discharge Date:08/20/2017 07:56 PM CM D/C Disposition: ADT D/C Disposition: Projected Discharge Date:08/20/2017 07:56 PM Transportation at D/C: Discharge Delay Reason: Follow-Up Date:08/20/2017 07:56 PM Discharge Slot: Final Diagnosis:Acute encephalopathy, Abdominal pain Placement Information Patient Contact Information Contact Name:JULIA Relationship:Dewey Address:[address] Work Phone: [place]:BAIRON Darrell Phone: [facility]/Zip Code:[place] [address] Email: Financial Information Financial Class: Primary Plan Desc:MEDICARE INPATIENT Primary Plan Number:[id number] Secondary Plan Desc: Secondary Plan Number: Assessment Information [facility] CM Progress Note CM Note CM Note Notes: 67 year old female admitted for Yanna umbilical abscess, acute encephalopathy, Abdominal pain. She was found down by her son, whom she lives with. Patient has a hx of CKD, DD, Non healing wound. To go to OR today, on a vent and dialysis. CM to follow for discharge needs. Date Signed: 08/20/2017 04:04 PM Electronically Signed By:Aline Handley LCSW Intervention Information
--- NOTE | 2017-08-21 18:06 | PDDCSUM ---
Discharge Summary Discharge Summary: DISCHARGE SUMMARY DATE OF ADMISSION: 08/19/2017 DATE OF DISCHARGE: 08/20/2017 DISCHARGE DIAGNOSES: 1. Septic shock present on admission 2. Acute encephalopathy 3. MSSA bacteremia present on admission 4. Periumbilical abscess present on admission 5. Acute diastolic CHF exacerbation 6. Acute hyperkalemia 7. Acute hyponatremia 8. Acute metabolic acidosis 9. Acute hyperglycemia 10. Acute renal failure 11. End-stage renal disease 12. Morbid obesity with BMI of 39.5 13. Anemia of end-stage renal disease 14. Acute blood loss anemia 15. Acute hemorrhagic shock 16. Acute PEA arrest 17. Acute ventricular fibrillation CONSULTATIONS: General surgery by Dr. Wallace, pulmonary Critical Care, Infectious Disease, Nephrology PROCEDURES / IMAGIN08/20/2017 abscess drainage with approximately half a gal of pus removed, estimated blood loss 500 cc Tunneled cath placement Emergent dialysis cath placement PICC line placement CHIEF COMPLAINT: Acute encephalopathy Cause of : PEA arrest, preceded by ventricular fibrillation, preceded by PEA arrest, preceded by septic shock and hemorrhagic shock Time of : 19:56 on 08/20/17. HOSPITAL COURSE BY PROBLEM: The patient initially presented with acute encephalopathy after she was found down by her son at her home. At that time, she was experiencing a combination of acute renal failure in the setting of end-stage renal disease, resulting in uremia, most likely initiated by septic shock caused by MSSA bacteremia from her periumbilical abscess. She was intubated in the emergency department given her critical severity of illness. The patient had been living with a likely infected ventral hernia from her pannus, and she had not been seeking active medical care for this issue. She recently did receive oral antibiotics from an unknown Clinic, but after discontinuing this oral antibiotics, her condition worsen. When she presented, her family expressed that she would be full code and aggressive goals of care, so an emergent dialysis line was placed, she received emergent hemodialysis, she received empiric IV antibiotics, and she received 2 U of packed red blood cells as well as pressors, in order to stabilize her for surgery. When she went to surgery, she had been weaned off of the pressors and she had received her blood as well as her 2nd dialysis treatment. While in the OR, a substantial amount of pustulant fluid was removed from the periumbilical abscess and wound VAC was placed. The patient's systolic blood pressure was initially stable, around 100, but then her systolic blood pressure began to decline, and she was placed on Dennis-Synephrine and Levophed as she was transferred back to the intensive care unit. Upon arriving to the intensive care unit, the patient was actively bleeding from her wound VAC site and she required addition of a 3rd pressor, 1L NS, and received IV albumin. The patient was temporarily stabilized on vasopressin and she began receiving a blood transfusion. The patient's family was updated on her critical status and encouraged to stay with the patient, as her condition was potentially becoming terminal. The patient's condition continued to of all of, and her septic shock as well as hemorrhagic shock were both worsening. Her lactic acid level was 5.6, and her hemoglobin level continued to decline. Additional blood products were ordered, and the patient was placed on dobutamine as her 4th pressor. The patient's systolic blood pressure did not respond, and she became bradycardic and then went into PEA arrest. Code blue was initiated, the patient received CPR, she received 4 rounds of epinephrine, as well as sodium bicarbonate, and her rhythm temporarily went into ventricular fibrillation, which received 1 defibrillator shock, but then devolved back into PEA arrest. After approximately 30 min of conducting the code, which was Co- managed by the hospitalist service and General surgery, the patient's family decided to make her do not resuscitate, and the patient from recurrent PEA arrest. Our condolences go to the family of Ms. Dee Parry.
--- NOTE | 2017-09-03 18:34 | GCON ---
[f rep st] CONSULTATION DATE OF CONSULTATION: 08/19/2017 HISTORY OF PRESENT ILLNESS: The patient is a 67-year-old female who is quite ill, was seen in the ER , intubated and sedated at the time of my consultation. She is in severe renal failure with a creati nine of 16 and hematocrit of only 21. Her family says she does not take good care of herself and oft en refuses to go to the doctor. She appears to have a septic abscess or seroma in her panniculus in the lower abdomen. She was admitted for evaluation and treatment. PAST MEDICAL HISTORY: Unavailable to me except through the old chart. FAMILY HISTORY: Unavailable to me except through the old chart. REVIEW OF SYSTEMS: Unavailable to me except through the old chart. PHYSICAL EXAMINATION: GENERAL: Reveals a sedated 67-year-old female, who is intubated, on a ventila tor. HEAD/NECK: Reveals pronounced jugular venous distention, but no other major problems. She is nonicteric. NECK: Supple. No thyromegaly. CHEST: Relatively clear. CARDIAC: Reveals a regular rhythm. She is mildly hypertensive. ABDOMEN: Soft. She has an upper midline abdominal hernia whic h is easily reducible. EXTREMITIES: Benign with full pulses, and she moves all of her extremities. NEUROLOGIC: Unobtainable as the patient is paralyzed, on ventilator. IMPRESSION: Sepsis from a probable abdominal wall abscess with severe acute renal failure. The neil ent presently is in too dire a shape for surgical intervention until she is at least dialyzed once or twice, and I agree with the need for urgent dialysis. PLAN: Right IJ neck catheter for dialysis. She will need an I and D of her panniculus abscess which will be quite extensive and probably require wound VAC placement. /[id number]/MODL
--- NOTE | 2017-09-04 00:25 | GOP ---
[f rep st] OPERATIVE REPORT DATE OF OPERATION: 08/19/2017 SURGEON: Clay Wallace MD PREOPERATIVE DIAGNOSIS: Acute renal failure. POSTOPERATIVE DIAGNOSIS: Acute renal failure. PROCEDURE PERFORMED: Right intravenous temporary dialysis catheter placement with ultrasound guidance. FINDINGS: Patient found with good flow from the catheter. DESCRIPTION OF PROCEDURE: The patient was taken to the operating room, where she received satisfactory IV sedation, monitored anesthesia care. She was placed in the supine position, prepped and draped in usual sterile fashion. She was then placed in Trendelenburg. Using ultrasound, a stick was made into the right internal jugular vein. A guidewire was introduced, and dilator was passed over the guidewire, and position confirmed pre then the murkurar dialysis catheter was passed with the guidewire, which was then removed. Good backflow was present. The catheter was flushed with heparin 5000 units/cc in the appropriate amount. The catheter was secured to the skin with 0 silk sutures. She tolerated the procedure well. Blood loss was minimal. There were no complications. /[id number]/MODL MTDD
--- NOTE | 2017-09-04 02:00 | GOP ---
[f rep st] OPERATIVE REPORT DATE OF OPERATION: 08/20/2017 SURGEON: Clay Wallace MD BELL CLERK: BRITTANIE Nagel. ANESTHESIOLOGIST: Dr. Antoine. PREOPERATIVE DIAGNOSIS: Giant abdominal wall abscess in her pannus. POSTOPERATIVE DIAGNOSIS: Giant abdominal wall abscess in her pannus, necrotizing fasciitis. PROCEDURE PERFORMED: Incision and drainage of abdominal wall abscess with panniculectomy. FINDINGS: Patient was found to have at least a quart of gross pus and fat necrosis in her lower abdo leonel pannus. DESCRIPTION OF PROCEDURE: The patient was taken to the operating room where she received satisfactor y general endotracheal anesthesia by Dr. Antoine. She was placed in supine position, prepped and drap ed in usual sterile fashion. Incision was made directly over the fluctuant area and entered an absce ss cavity containing over a quart of pus. This was suctioned clear and then irrigated clear. There was a fair amount of necrotic fat around the abscess cavity, suggesting necrotizing fasciitis. It wa s elected to try to resect this if possible. The patient's vital signs were stable per Anesthesia, a nd with communication with Anesthesia, we proceeded to do a rapid panniculectomy with a large ellipti janiya skin incision carried down to the fascia above and below the area. The pannus was then elevated up with electrocautery off the fascia and removed. This removed the entire abscess pocket. Hemostas is was carefully obtained with electrocautery. The wound was then dressed with a Wound-VAC system an d connected to the apparatus with 125 mm of water suction pressure. She actually tolerated the proce dure reasonably well, and was taken to the recovery room in satisfactory but critical condition. /[id number]/MODL
--- NOTE | 2017-09-04 02:05 | GOP ---
[f rep st] OPERATIVE REPORT DATE OF OPERATION: 08/20/2017 SURGEON: Clay Wallace MD PREOPERATIVE DIAGNOSIS: Renal failure. POSTOPERATIVE DIAGNOSIS: Renal failure. PROCEDURE PERFORMED: Placement of a tunneled Palindrome catheter in the right neck with fluoro guidance. FINDINGS: Good position and flow DESCRIPTION OF PROCEDURE: The patient was in the operating room with general endotracheal anesthesia by Dr. Antoine. She was placed in supine position, prepped and draped in usual sterile fashion. A guidewire was introduced in the right jugular vein through her old dialysis access, which was removed. The wound area was re-prepped and draped, and the insertion site was debrided sharply. A series of dilators was passed over the guidewire, and then a Palindrome catheter was brought in through a separate stab incision on the anterior chest wall and tunneled up over the clavicle, into this insertion site. It was then introduced into the right atrium via the introducer sheath and dilator system, which was removed. Good backflow was achieved. The catheter was flushed with heparin and saline, and instilled with the appropriate amount of 5000 units/cc heparin. Exit site was secured with 3-0 Prolene sutures, and the entrance site was closed with 3-0 Prolene mattress sutures. All wounds were infiltrated with 0.25% Marcaine. She tolerated the procedure well. There were no complications. Fluoroscopy was used to position the catheter appropriately. /[id number]/MODL MTDD
== END 2017-08-20 19:56 | disposition expired | DRG 853 ==
LOC: EDUNIT# → F2N 13:23
PROVIDERS: ADMIT Internal Medicine; ATTEND Internal Medicine
PROC: 02H633Z Insertion of Infusion Device into Right Atrium, Percutaneous Approach (ICD-10-PCS; 2017-08-19)
PROC: 02H633Z Insertion of Infusion Device into Right Atrium, Percutaneous Approach (ICD-10-PCS; 2017-08-19)
PROC: 30233N1 Transfusion of Nonautologous Red Blood Cells into Peripheral Vein, Percutaneous Approach (ICD-10-PCS; 2017-08-19)
PROC: 0JB80ZZ Excision of Abdomen Subcutaneous Tissue and Fascia, Open Approach (ICD-10-PCS; principal; 2017-08-20 15:30)
PROC: 02H633Z Insertion of Infusion Device into Right Atrium, Percutaneous Approach (ICD-10-PCS; 2017-08-20 15:30)
DX: A41.01 Sepsis due to Methicillin susceptible Staphylococcus aureus (principal); R65.21 Severe sepsis with septic shock; L02.211 Cutaneous abscess of abdominal wall; G93.40 Encephalopathy, unspecified; I13.2 Hypertensive heart and chronic kidney disease with heart failure and with stage 5 chronic kidney disease, or end stage renal disease; N18.6 End stage renal disease; I50.33 Acute on chronic diastolic (congestive) heart failure; N17.9 Acute kidney failure, unspecified; E66.01 Morbid (severe) obesity due to excess calories; Z68.39 Body mass index [BMI] 39.0-39.9, adult; E11.22 Type 2 diabetes mellitus with diabetic chronic kidney disease; E11.65 Type 2 diabetes mellitus with hyperglycemia; D63.1 Anemia in chronic kidney disease; I49.01 Ventricular fibrillation; I46.8 Cardiac arrest due to other underlying condition; D62 Acute posthemorrhagic anemia; E87.2 Acidosis; E87.1 Hypo-osmolality and hyponatremia; E87.5 Hyperkalemia
CPT/HCPCS: 82947-QW; C1750; C1751; G0472; J0610; J0690; J1250; J1642; J1644; J1815; J2060; J2310; J2370; J2543; J3010; J3370; J7613; P9016; P9041